=== PATIENT | male | born 1945 | race Caucasian/White ===

== ENCOUNTER 2016-12-28 12:30 | Inpatient (IN) | payer MEDICARE, OTHER ==
--- NOTE | ~2016-12-28 | DS ---
Discharge Summary [facility] [address] [place]. [address] NAME: GENE READ SR : 47 STATUS : DIS IN PAT#: [id number] AGE: 72 ADM/REG DATE : 12/31/16 MR#: [id number] REPORT SERV DATE: 01/07/17 DICTATED BY: CLARENCE LAUREN DATE: 01/06/17 REPORT STATUS : Draft TRANSCRIBED BY: MODJesse DATE: 01/06/17 ADMISSION DATE: 12/31/2016 DISCHARGE DATE: 01/01/2017 DISCHARGE DIAGNOSES: 1. Metabolic encephalopathy. 2. Alcohol, THC, and nicotine use. 3. Chronic obstructive pulmonary disease. 4. Fecal stasis. 5. Seizure history. 6. Cerebrovascular accident history. 7. Right foot malformation. CONSULTATIONS: 1. Podiatry. 2. Psychiatry. DISCHARGE DISPOSITION: Home with Home Health. Family Medicine assistance, home PT. Follow up with PCP in one to two weeks. To keep Outpatient Surgery, Neurology, and Podiatry appointments as ordered and Psychiatry. DISCHARGE MEDICATIONS: 1. Aspirin 81 mg one tablet p.o. [id number]-hdyqczu. 2. Plavix 75 mg one tablet p.o. daily. 3. Digoxin 0.125 mg one tablet p.o. at 1300 hours. 4. Docusate 100 mg one tablet p.o. b.i.d. 5. Pepcid 20 mg one tablet p.o. daily. 6. Folic acid over the counter. 7. Singular home dose 10 mg. 8. Sfgs-knr-ygagbpa multivitamin of choice. 9. Metoprolol 12.5 mg one tablet p.o. b.i.d. 10.Nicotine patch 21 mg one tablet p.o. topical daily. 11.Phenytoin 100 mg one tablet p.o. t.i.d. 12.Pravastatin 40 mg one tablet p.o. 13.Advair Diskus home dose. 14.Zoloft discontinued. 15.[place] discontinued. 16.BuSpar discontinued. 17.Ventolin two puffs inhalation q.4 hours. 18.Seroquel 12.5 mg one tablet p.o. b.i.d. 19.Tramadol 50 mg one tablet p.o. for short-term until seen by PCP, only one week supply given. This medication was called in by pharmacist. HOSPITAL COURSE: Please see H and P for complete detailed HPI. Briefly, Mr. Read is a 72 year-old male with past medical history of alcohol, THC, nicotine use, COPD, CVA, history with resultant seizure history, has been on Dilantin for many years with seizure Discharge Summary [facility] [address] [place]. [address] NAME: GENE READ SR : 47 STATUS : DIS IN PAT#: [id number] AGE: 72 ADM/REG DATE : 12/31/16 MR#: [id number] REPORT SERV DATE: 01/07/17 DICTATED BY: CLARENCE LAUREN DATE: 01/06/17 REPORT STATUS : Draft TRANSCRIBED BY: MODL DATE: 01/06/17 many years ago, additionally right foot deformity and malalignment, who presents after having acute encephalopathy episode, initially was thought to have alcoholic intoxication, was placed on detox protocol. However after further review of symptoms, the patient although does have alcohol use history and does not appear to be acute detox history as the patient was able to be weaned back and was monitored. Electrolytes were optimized, and polypharmacy medications were adjusted. Additionally, the patient was evaluated by Psychiatry. The patient was able to be weaned down and thought encephalopathy may have been more acute secondary to polypharmacy and possibly episode of mild postictal as the patient had subtherapeutic Dilantin level, although this was thought less likely by Psychiatry Team. After the patient's adjustment of medications appears to be most notable change. The patient also reports that he has had multiple different uses of THC which he believes is a factor and which caused the acute delirium. The patient at the time of discharge had resolution of symptoms, felt back to his baseline and very eager to go, and went home under care back to his caregiver with family. DICTATED BY: MD JENIFFER Julio/SUNDAR Clarence Lauren MD / [id number] CC: Clarence Lauren MD
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
[~2016-12-28 12:30] MED LIST: *UNABLE2; *UNABLE3; ADVAIR; ADVAIR250 INH; ADVIL PO; ALAVERT10 MG PO; ATROVENT HFA17 MCG INH; BUSPAR5; CLARIT10 PO; COREG3 PO; COZ25 PO; D100 PO; DIGITEK0.125 MG PO; DURICEF PO; FAMOTIDINE PO; FLEX PO; FLONASE NAS; HALF81 PO; IMDUR30 PO; IPRA17AE INH; K500 PO; KEPPRA500 PO; KLONO1 PO; KLONO5 PO; LAN125 PO; LEVAQUIN750 MG PO; LEVITRA5 PO; LEVSINTAB PO; LOP25 PO; LORCET PO; LORTAB 5; MONOKET20 PO; MSCONT15 PO; NEUR300 PO; NEUR600 PO; NICODERM C14 MG/24 H TOP; NICODERM C21 MG/241 TOP; NORCO1 TA2 PO; NORCO1 TAB PO; PAX20 PO; PAXIL40 MG PO; PLAVIX PO; PR25 PO; PRAVACHOL40 MG; PRAVACHOL40 MG PO; PROAIR HFA INH; RANITIDINE300 MG PO; REG PO; RELA5 PO; SEROQUEL1C PO; SEROQUEL25 PO; SINGULAIR1; SPIRIVA INH; SUCR PO; VENTOLIN HFA INH; ZANTAC300 MG PO; ZOL100 PO
[2016-12-28 13:40] LABS: BASOPHILS 0.2 %; BASOPHILS ABSOLUTE 0.02 10/3/uL (0.0-0.16); EOSINOPHILS 0.6 %; EOSINOPHILS ABSOLUTE 0.05 10/3/uL (0.0-0.53); HEMATOCRIT 39.2 % (40.0-51.0); HEMOGLOBIN 13.3 g/dL (13.6-17.8); IMMATURE GRANULOCYTES 0.2 %; IMMATURE GRANULOCYTES ABSOLUTE 0.02 10/3/uL (0.0-0.11); LYMPHOCYTES 21.3 %; LYMPHOCYTES ABSOLUTE 1.91 10/3/uL (0.67-4.30); MEAN CORPUS HGB CONC 33.9 g/dL (32.0-36.0); MEAN CORPUSCULAR HEMOGLOB 33.3 pg (26.0-34.0); MEAN PLATELET VOLUME 8.6 fL (9.2-13.0); MONOCYTES 10.8 %; MONOCYTES ABSOLUTE 0.97 10/3/uL (0.21-1.20); NEUTROPHILS 66.9 %; NEUTROPHILS ABSOLUTE 5.98 10/3/uL (2.02-8.40); PLATELET COUNT 334 10/3/uL (150-400); RBC DISTRIBUTION WIDTH 14.9 % (12.0-16.0)
[2016-12-28 13:41] LABS: MANUAL DIFF NO %
[2016-12-28 13:48] LABS: PARTIAL THROMBO TIME 23.5 SEC (22.5-37.2)
[2016-12-28 13:49] LABS: PROTIME (NOT ORD) 13.3 SEC (12.0-14.5)
[2016-12-28 14:01] LABS: DILANTIN (PHENYTOIN) 0.6 MCG/ML (10.0-20.0)
[2016-12-28 14:02] LABS: BUN (BLOOD UREA NITROGEN) 26 MG/DL (6-23); CHLORIDE, SERUM 105 MMOL/L (96-112); CO2 (CARBON DIOXIDE) 22 MMOL/L (24-34); POTASSIUM, SERUM 4.1 MMOL/L (3.5-5.3); SODIUM, SERUM 142 MMOL/L (135-148)
[2016-12-28 14:03] LABS: ALBUMIN 3.7 G/DL (3.5-5.0); ALKALINE PHOSPHATASE 78 U/L (45-117); CALCIUM, SERUM 8.9 MG/DL (8.5-10.4); CREATININE 1.12 MG/DL (0.70-1.30); DIRECT BILIRUBIN < 0.1 MG/DL (0.0-0.4); GFR AFRICAN AMERICAN 77 ML/MIN (>=60); GFR NON AFRICAN AMERICAN 67 ML/MIN (>=60); GLUCOSE, SERUM 85 MG/DL (60-99); INDIRECT BILIRUBIN(NOT ORDER) 0.1 MG/DL (0.1-0.9); SGOT(AST) 47 U/L (5-40); SGPT(ALT) 44 U/L (5-65); TOTAL BILIRUBIN 0.2 MG/DL (0-1.2)
[2016-12-28 14:04] LABS: ACETAMINOPHEN LEVEL (TYLENOL) < 2.0 MCG/ML (10.0-20.0); CHEST PAIN PROFILE TAT 0 Hrs 30 Mins; SALICYLATE < 1.7 MG/DL (-); TROPONIN I <0.02 NG/ML (<0.05)
[2016-12-28 14:06] LABS: ALCOHOL < 10 MG/DL (0)
[2016-12-28 14:44] LABS: DIGOXIN 0.3 NG/ML (0.8-2.0)
[2016-12-28 15:23] LABS: ASCORBIC ACID (UR NOT ORDER) NEG (NEG); BILIRUBIN, URINE NEGATIVE (NEG); ER URINALYSIS TAT 0 Hrs 10 Mins; KETONE, URINE 20 MG/DL (NEG); LEUKOCYTE ESTERASE(NOT OR NEG (NEG); NITRITE (URINE) NEG (NEG); WBC (NOT ORDERED) (RFLEX) 1 (0-5)
[2016-12-28 15:47] LABS: AMPHETAMINES (NOT ORD) NEG (NEG); BARBITURATES (NOT ORDERED NEG (NEG); BENZODIAZEPINES (NOT ORD) NEG (NEG); CANNABINOIDS (THC) POS (NEG); COCAINE (NOT ORDERED) NEG (NEG); OPIATES NEG (NEG); PHENCYCLIDINE(PCP) NEG (NEG)
[2016-12-28 15:48] LABS: TRICYCLICS NEG (NEG)
[2016-12-28 23:55] LABS: BASOPHILS 0.4 %; BASOPHILS ABSOLUTE 0.03 10/3/uL (0.0-0.16); EOSINOPHILS 0.7 %; EOSINOPHILS ABSOLUTE 0.05 10/3/uL (0.0-0.53); HEMATOCRIT 41.6 % (40.0-51.0); HEMOGLOBIN 14.2 g/dL (13.6-17.8); LYMPHOCYTES 20.6 %; LYMPHOCYTES ABSOLUTE 1.57 10/3/uL (0.67-4.30); MEAN CORPUS HGB CONC 34.1 g/dL (32.0-36.0); MEAN CORPUSCULAR HEMOGLOB 33.6 pg (26.0-34.0); MEAN CORPUSCULAR VOLUME 98.3 fL (80-100); MEAN PLATELET VOLUME 8.6 fL (9.2-13.0); MONOCYTES 6.2 %; MONOCYTES ABSOLUTE 0.47 10/3/uL (0.21-1.20); NEUTROPHILS 72.1 %; NEUTROPHILS ABSOLUTE 5.51 10/3/uL (2.02-8.40); PLATELET COUNT 367 10/3/uL (150-400); RBC DISTRIBUTION WIDTH 14.8 % (12.0-16.0); RED CELL COUNT 4.23 10/6/uL (4.7-6.1); WHITE BLOOD CELLS 7.6 10/3/uL (4.5-10.5)
[2016-12-28 23:56] LABS: MANUAL DIFF NO %
[2016-12-29 00:20] LABS: ALBUMIN 3.9 G/DL (3.5-5.0); ALKALINE PHOSPHATASE 95 U/L (45-117); BUN (BLOOD UREA NITROGEN) 25 MG/DL (6-23); CALCIUM, SERUM 9.1 MG/DL (8.5-10.4); CHLORIDE, SERUM 108 MMOL/L (96-112); CO2 (CARBON DIOXIDE) 22 MMOL/L (24-34); CPK 100 U/L (0-200); CREATININE 0.95 MG/DL (0.70-1.30); GFR AFRICAN AMERICAN 94 ML/MIN (>=60); GFR NON AFRICAN AMERICAN 81 ML/MIN (>=60); GLOBULIN 4.1 G/DL (2.5-4.1); GLUCOSE, SERUM 84 MG/DL (60-99); PHOSPHORUS, SERUM 2.8 MG/DL (2.5-4.5); POTASSIUM, SERUM 4.1 MMOL/L (3.5-5.3); SGOT(AST) 36 U/L (5-40); SGPT(ALT) 47 U/L (5-65); SODIUM, SERUM 139 MMOL/L (135-148); TOTAL BILIRUBIN 0.5 MG/DL (0-1.2); TROPONIN I <0.02 NG/ML (<0.05); ULTRASENSITIVE TSH 0.759 MCIU/ML (0.358-3.740)
[2016-12-29 01:16] LABS: PROCALCITONIN <0.05 ng/mL (<0.5)
[2016-12-29 04:48] LABS: BASOPHILS 0.4 %; BASOPHILS ABSOLUTE 0.03 10/3/uL (0.0-0.16); EOSINOPHILS 0.6 %; EOSINOPHILS ABSOLUTE 0.04 10/3/uL (0.0-0.53); HEMATOCRIT 41.6 % (40.0-51.0); HEMOGLOBIN 13.8 g/dL (13.6-17.8); IMMATURE GRANULOCYTES 0.1 %; IMMATURE GRANULOCYTES ABSOLUTE 0.01 10/3/uL (0.0-0.11); LYMPHOCYTES 21.7 %; LYMPHOCYTES ABSOLUTE 1.55 10/3/uL (0.67-4.30); MANUAL DIFF NO %; MEAN CORPUS HGB CONC 33.2 g/dL (32.0-36.0); MEAN CORPUSCULAR HEMOGLOB 33.4 pg (26.0-34.0); MEAN CORPUSCULAR VOLUME 100.7 fL (80-100); MEAN PLATELET VOLUME 8.9 fL (9.2-13.0); MONOCYTES 9.9 %; MONOCYTES ABSOLUTE 0.71 10/3/uL (0.21-1.20); NEUTROPHILS 67.3 %; PLATELET COUNT 335 10/3/uL (150-400); RBC DISTRIBUTION WIDTH 14.5 % (12.0-16.0); RED CELL COUNT 4.13 10/6/uL (4.7-6.1); WHITE BLOOD CELLS 7.1 10/3/uL (4.5-10.5)
[2016-12-29 05:03] LABS: BUN (BLOOD UREA NITROGEN) 23 MG/DL (6-23); CALCIUM, SERUM 8.4 MG/DL (8.5-10.4); CHLORIDE, SERUM 108 MMOL/L (96-112); CO2 (CARBON DIOXIDE) 19 MMOL/L (24-34); CPK 102 U/L (0-200); CREATININE 0.79 MG/DL (0.70-1.30); GFR AFRICAN AMERICAN 106 ML/MIN (>=60); GFR NON AFRICAN AMERICAN 92 ML/MIN (>=60); GLUCOSE, SERUM 99 MG/DL (60-99); PHOSPHORUS, SERUM 2.8 MG/DL (2.5-4.5); POTASSIUM, SERUM 3.8 MMOL/L (3.5-5.3); SODIUM, SERUM 139 MMOL/L (135-148); TROPONIN I <0.02 NG/ML (<0.05)
[2016-12-29 05:05] LABS: CK-MB 2.1 NG/ML
[2016-12-29 11:06] LABS: CK-MB 1.7 NG/ML; CPK 101 U/L (0-200)
[2016-12-29 12:40] LABS: GLYCOHEMOGLOBIN (HbA1c) 5.3 % (4.7-6.1)
[2016-12-30 06:25] LABS: BASOPHILS 0.4 %; BASOPHILS ABSOLUTE 0.03 10/3/uL (0.0-0.16); EOSINOPHILS 2.5 %; EOSINOPHILS ABSOLUTE 0.17 10/3/uL (0.0-0.53); HEMOGLOBIN 12.3 g/dL (13.6-17.8); IMMATURE GRANULOCYTES 0.1 %; IMMATURE GRANULOCYTES ABSOLUTE 0.01 10/3/uL (0.0-0.11); LYMPHOCYTES 31.3 %; LYMPHOCYTES ABSOLUTE 2.14 10/3/uL (0.67-4.30); MEAN CORPUSCULAR HEMOGLOB 32.5 pg (26.0-34.0); MEAN CORPUSCULAR VOLUME 98.4 fL (80-100); MEAN PLATELET VOLUME 8.5 fL (9.2-13.0); MONOCYTES 13.2 %; NEUTROPHILS 52.5 %; NEUTROPHILS ABSOLUTE 3.58 10/3/uL (2.02-8.40); PLATELET COUNT 350 10/3/uL (150-400); RED CELL COUNT 3.79 10/6/uL (4.7-6.1); WHITE BLOOD CELLS 6.8 10/3/uL (4.5-10.5)
[2016-12-30 06:27] LABS: HEMATOCRIT 37.3 % (40.0-51.0); MANUAL DIFF NO %
[2016-12-31 06:53] LABS: BASOPHILS 0.6 %; BASOPHILS ABSOLUTE 0.04 10/3/uL (0.0-0.16); EOSINOPHILS 4.8 %; HEMATOCRIT 44.5 % (40.0-51.0); HEMOGLOBIN 14.5 g/dL (13.6-17.8); IMMATURE GRANULOCYTES 0.3 %; IMMATURE GRANULOCYTES ABSOLUTE 0.02 10/3/uL (0.0-0.11); LYMPHOCYTES 45.6 %; LYMPHOCYTES ABSOLUTE 2.83 10/3/uL (0.67-4.30); MANUAL DIFF NO %; MEAN CORPUS HGB CONC 32.6 g/dL (32.0-36.0); MEAN CORPUSCULAR HEMOGLOB 32.9 pg (26.0-34.0); MEAN CORPUSCULAR VOLUME 100.9 fL (80-100); MEAN PLATELET VOLUME 9.2 fL (9.2-13.0); MONOCYTES 14.7 %; MONOCYTES ABSOLUTE 0.91 10/3/uL (0.21-1.20); PLATELET COUNT 302 10/3/uL (150-400); RBC DISTRIBUTION WIDTH 14.3 % (12.0-16.0); RED CELL COUNT 4.41 10/6/uL (4.7-6.1); WHITE BLOOD CELLS 6.2 10/3/uL (4.5-10.5)
[2016-12-31 07:04] LABS: CALCIUM, SERUM 8.5 MG/DL (8.5-10.4); CHLORIDE, SERUM 109 MMOL/L (96-112); CREATININE 0.79 MG/DL (0.70-1.30); GFR AFRICAN AMERICAN 106 ML/MIN (>=60); GFR NON AFRICAN AMERICAN 92 ML/MIN (>=60); GLUCOSE, SERUM 82 MG/DL (60-99); PHOSPHORUS, SERUM 3.3 MG/DL (2.5-4.5); SODIUM, SERUM 140 MMOL/L (135-148)
[2016-12-31 07:05] LABS: BUN (BLOOD UREA NITROGEN) 7 MG/DL (6-23); CO2 (CARBON DIOXIDE) 24 MMOL/L (24-34)
[2016-12-31] MEDS ORDERED: PEP20 PO (09:50)
[2017-01-01 07:14] LABS: HEMATOCRIT 41.1 % (40.0-51.0); HEMOGLOBIN 13.6 g/dL (13.6-17.8); MEAN CORPUS HGB CONC 33.1 g/dL (32.0-36.0); MEAN CORPUSCULAR HEMOGLOB 32.8 pg (26.0-34.0); MEAN PLATELET VOLUME 9.2 fL (9.2-13.0); NUCLEATED RED BLOOD CELLS 1.1 /100WBC (0-0); PLATELET COUNT 341 10/3/uL (150-400); RBC DISTRIBUTION WIDTH 14.4 % (12.0-16.0); RED CELL COUNT 4.15 10/6/uL (4.7-6.1); WHITE BLOOD CELLS 6.9 10/3/uL (4.5-10.5)
[2017-01-01 07:16] LABS: MANUAL DIFF YES %
[2017-01-01 07:40] LABS: EOSINOPHILS 4 %; EOSINOPHILS ABSOLUTE (CALC) 0.28 10/3/uL (0.0-0.53); LYMPHOCYTES 33 %; LYMPHOCYTES ABSOLUTE (CALC) 2.28 10/3/uL (0.67-4.30); MONOCYTES 16 %; NEUTROPHILS ABSOLUTE (CALC) 3.24 10/3/uL (2.02-8.40); PLATELET ESTIMATE ADQ (ADEQUATE); RBC MORPHOLOGY NORM (NORMAL); SEGMENTED NEUTROPHIL (0) 47 %; TOTAL NUCLEATED CELLS 100
[2017-01-01 07:53] LABS: BUN (BLOOD UREA NITROGEN) 9 MG/DL (6-23); CALCIUM, SERUM 8.3 MG/DL (8.5-10.4); CHLORIDE, SERUM 103 MMOL/L (96-112); CREATININE 1.01 MG/DL (0.70-1.30); GFR AFRICAN AMERICAN 88 ML/MIN (>=60); GFR NON AFRICAN AMERICAN 76 ML/MIN (>=60); GLUCOSE, SERUM 93 MG/DL (60-99); PHOSPHORUS, SERUM 3.1 MG/DL (2.5-4.5); POTASSIUM, SERUM 4.5 MMOL/L (3.5-5.3); SODIUM, SERUM 138 MMOL/L (135-148)
[2017-01-01 07:54] LABS: CO2 (CARBON DIOXIDE) 31 MMOL/L (24-34)
[2017-01-01] MEDS ORDERED: HABIT21 TOP (10:38)
[2017-01-01] MEDS ORDERED: SEROQUEL PO (10:38)
[2017-01-01] MEDS ORDERED: ASAB PO (10:39)
[2017-01-01] MEDS ORDERED: PLAVIX (10:39)
[2017-01-01] MEDS ORDERED: PRAVACHOL40 MG PO (10:39)
[2017-01-01] MEDS ORDERED: D.O.S.100 MG PO (10:41)
[2017-01-01] MEDS ORDERED: METOPROLOL PO (10:42)
[2017-01-01] MEDS ORDERED: D100 PO (10:43)
== END 2017-01-01 11:45 | disposition home health service (06) | DRG 71 ==
LOC: ER 12:30 → 2SO 19:53
PROVIDERS: Emergency Medicine; Internal Medicine; Student in an Organized Health Care Education/Training Program
DX: G93.41 Metabolic encephalopathy (principal); E87.2 Acidosis; F10.21 Alcohol dependence, in remission; J44.9 Chronic obstructive pulmonary disease, unspecified; I25.10 Atherosclerotic heart disease of native coronary artery without angina pectoris; R07.81 Pleurodynia; R10.12 Left upper quadrant pain; F12.90 Cannabis use, unspecified, uncomplicated; F10.20 Alcohol dependence, uncomplicated; G40.909 Epilepsy, unspecified, not intractable, without status epilepticus; F17.210 Nicotine dependence, cigarettes, uncomplicated; F32.9 Major depressive disorder, single episode, unspecified; F41.9 Anxiety disorder, unspecified; M21.961 Unspecified acquired deformity of right lower leg; M24.574 Contracture, right foot; Z86.73 Personal history of transient ischemic attack (TIA), and cerebral infarction without residual deficits; Z95.5 Presence of coronary angioplasty implant and graft; Z95.1 Presence of aortocoronary bypass graft
CPT/HCPCS: 70450; 70551; 71010; 74000; 74176; 80048; 80053; 80076; 80162; 80185; 80305; 80307; 81001; 82140; 82150; 82550; 82553; 82962; 83036; 83605; 83690; 83735; 84100; 84145; 84443; 84484; 85025; 85610; 85730; 87449; 93005; 94640; 97110-GP; 97116-GP; 97161-GP; 97165-GO; 99285; A9270-GY; G8978-CK-GP; G8979-CI-GP; G8987-CJ-GO; G8988-CJ-GO; G8989-CJ-GO; J1160; J1170; J1953; J2405; J3411; J3486